=== PATIENT | male | born 1965 ===

== ENCOUNTER 2016-10-25 02:55 | Emergency (ER) | payer MEDICAID ==
--- NOTE | 2016-10-25 03:13 | C.PDOC ---
History Of Present Illness patient has been having chronic tinnitus and could not sleep tonight. Patient vey anxious, took 2 benadryl prior to arrival. Patient speaking in complete sentences,.tolerating his own secretions. No f/c/n/v Time Seen by Provider: 10/25/16 03:13 Chief Complaint (Nursing): ENT Problem History Per: Patient History/Exam Limitations: None Onset/Duration Of Symptoms: Other (10-12 months) Current Symptoms Are (Timing): Still Present Quality (Ear): Other (ringing) Symptoms Have Been: Episodic Severity: Moderate Pain Scale Rating Of: 4 Anticoagulant/Antiplatlet Use?: No Recent Aspirin Use: No Past Medical History Reviewed: Historical Data, Nursing Documentation, Vital Signs Vital Signs: Last Vital Signs Temp 97.5 F L 10/25/16 03:09 Pulse 103 H 10/25/16 03:09 Resp 26 H 10/25/16 03:09 BP 142/85 10/25/16 03:09 Pulse Ox 97 10/25/16 03:09 Family History: States: No Known Family Hx Review Of Systems Constitutional: Negative for: Fever, Chills Eyes: Negative for: Redness ENT: Positive for: Other (tinnitus). Negative for: Ear Pain, Nose Discharge, Nose Congestion, Throat Swelling Respiratory: Negative for: Shortness of Breath Gastrointestinal: Negative for: Nausea, Vomiting, Abdominal Pain Musculoskeletal: Negative for: Back Pain Skin: Negative for: Rash, Lesions, Jaundice, Bruising Neurological: Negative for: Weakness, Change in Speech Psych: Positive for: Anxiety Physical Exam - Physical Exam Appears: Non-toxic, No Acute Distress Skin: Warm, Dry Head: Atraumatic, Normacephalic Eye(s): bilateral: Normal Inspection, PERRL, EOMI Nose: No Discharge Oral Mucosa: Moist Throat: No Erythema, No Exudate Neck: Normal ROM, Supple Chest: Symmetrical Respiratory: No Rales, No Rhonchi, No Wheezing Neurological/Psych: Oriented x3, Normal Speech, Normal Cognition Gait: Steady ED Course And Treatment O2 Sat by Pulse Oximetry: 97 Pulse Ox Interpretation: Normal Disposition Counseled Patient/Family Regarding: Studies Performed, Diagnosis, Need For Followup, Rx Given - Disposition Referrals: Andrea De La Cruz MD [Staff Provider] - Samuel Aquino MD [Staff Provider] - Disposition: HOME/ ROUTINE Disposition Time: 03:13 Condition: FAIR Additional Instructions: Please also use claritin Prescriptions: Prednisone [Deltasone] 20 mg PO DAILY #5 tablet Meclizine [Meclizine*] 25 mg PO Q6 #30 tab Instructions: Tinnitus (ED), Labyrinthitis (ED) - Clinical Impression Clinical Impression: Tinnitus, Labyrinthitis
[2016-10-25 03:14] VITALS: O2SAT 97
[2016-10-25 05:16] VITALS: BP 104/61; PULSE 84; RESP 16; TEMP 98.1
== END 2016-10-25 05:16 | disposition home or self-care (01) ==
LOC: C.ER 02:55
DX: H93.19 Tinnitus, unspecified ear (principal); H83.09 Labyrinthitis, unspecified ear

== ENCOUNTER 2016-11-17 15:41 | Emergency (ER) | payer MEDICAID ==
[2016-11-17 15:56] VITALS: TEMP 97.8
[2016-11-17] MEDS ORDERED: Albuterol-Ipratrop 3 mg / 0.5 (3 ml) UD INH STA (16:22)
[2016-11-17] MEDS ORDERED: Albuterol-Ipratrop 3 mg / 0.5 (3 ml) UD ONE (16:25)
[2016-11-17] MEDS ORDERED: Sodium Chloride 0.9% 1,000 ML IV ONE (16:25)
[2016-11-17] MEDS ORDERED: Sodium Chloride 0.9% 1,000 ML ONE (16:32)
--- NOTE | 2016-11-17 16:46 | C.PDOC ---
History Of Present Illness A 51 y/o male with a Hx of anxiety, presents to the ER c/o nasal congestion and difficulty swallowing that occurred [employer]. Patient notes that his allergies became worse after swallowing soy milk noting that "he felt like his air way was closing". Pt reports his seasonal allergies has become worse lately. Pt notes taking Zyrtec with no relief. Pt denies rash, fever, chills, vomiting, nausea, or any other complaints. Time Seen by Provider: 11/17/16 15:58 Chief Complaint (Nursing): Allergic Reaction History Per: Patient History/Exam Limitations: no limitations Onset/Duration Of Symptoms: Hrs Current Symptoms Are (Timing): Still Present Context: Food Possible Cause: Seasonal Allergies Home/EMS Treatment: Other (Zyrtec) Severity: Mild Additional History Per: Patient Past Medical History Reviewed: Historical Data, Nursing Documentation, Vital Signs Vital Signs: Last Vital Signs Temp 97.8 F 11/17/16 15:54 Pulse 101 H 11/17/16 15:54 Resp 12 11/17/16 15:54 BP 168/82 H 11/17/16 15:54 Pulse Ox 96 11/17/16 17:24 - Medical History PMH: Asthma, Migraine Surgical History: Appendectomy Family History: States: Unknown Family Hx - Social History Hx Alcohol Use: No Hx Substance Use: No - Immunization History Hx Tetanus Toxoid Vaccination: No Hx Influenza Vaccination: No Hx Pneumococcal Vaccination: No Review Of Systems Except As Marked, All Systems Reviewed And Found Negative. Constitutional: Negative for: Fever, Chills ENT: Positive for: Nose Congestion, Throat Swelling (Difficulaty swallowing) Gastrointestinal: Negative for: Nausea, Vomiting Skin: Negative for: Rash Physical Exam - Physical Exam Appears: Non-toxic, No Acute Distress, Other (Appears anxious) Skin: Warm, Dry Head: Atraumatic, Normacephalic Eye(s): bilateral: Normal Inspection Ear(s): Bilateral: Normal Oral Mucosa: Moist Throat: No Exudate, Other (Widely patent) Cardiovascular: Rhythm Regular, No Murmur Respiratory: Normal Breath Sounds, No Accessory Muscle Use, No Rales, No Rhonchi , No Wheezing Neurological/Psych: Oriented x3, Normal Speech (No change in voice), Normal Cognition ED Course And Treatment O2 Sat by Pulse Oximetry: 96 (RA) Pulse Ox Interpretation: Normal Progress Note: prednisone, pepcid, duoneb, Xanax Reevaluation Time: 17:13 Reassessment Condition: Improved (much improved, calm, relaxing.) Medical Decision Making Medical Decision Making: Plans: -Abuterol -Xanx -Pepcid -PredniSONE -IV fluids -Reassess and disposition On reassessment, patient is resting comfortably, and is in no acute distress. Patient was instructed to follow up with physician/clinic in 1-2 days for further evaluation. 1715: c/c anxiety attack, seasonal allergies, allergic rxn to soy milk (but no rash/erythema anywhere) final re-eval, no rash, clear lungs, widely patent OP. Disposition Doctor Will See Patient In The: Office Counseled Patient/Family Regarding: Studies Performed, Diagnosis - Disposition Referrals: [facility] [Outside] [email or web address] [Outside] Disposition: HOME/ ROUTINE Disposition Time: 17:15 Condition: GOOD Additional Instructions: continue Zyrtec-D or Karma-D (the "D" is the Decongestant component of these meds) Continue the Medrol Dose Pack starting tomorrow/Fri, until completed. Prescriptions: Methylprednisolone [Medrol Dose Pack (21 tabs)] 4 mg PO DAILY #21 mg Instructions: Allergies (ED), General Allergic Reaction (ED) - Clinical Impression Clinical Impression: Throat discomfort - Scribe Statement The provider has reviewed the documentation as recorded by the Scribe Sahan [email or web address] All medical record entries made by the Scribe were at my direction and personally dictated by me. I have reviewed the chart and agree that the record accurately reflects my personal performance of the history, physical exam, medical decision making, and the department course for this patient. I have also personally directed, reviewed, and agree with the discharge instructions and disposition.
[2016-11-17 18:04] VITALS: BP 104/72; PULSE 76; RESP 10; O2SAT 97
== END 2016-11-17 18:03 | disposition home or self-care (01) ==
LOC: C.ER 15:41
DX: J39.2 Other diseases of pharynx (principal)
CPT/HCPCS: 94640; 99283; J7040

== ENCOUNTER 2016-12-19 13:06 | Emergency (ER) | payer MEDICAID ==
[2016-12-19 13:17] VITALS: BMI 26.2
[2016-12-19 14:09] LABS: BASO % 0.6 % (0.0-2.0); EOS # 0.4 K/uL (0.0-0.7); HEMATOCRIT 44.2 % (35.0-51.0); LYMPH # 2.3 K/uL (1.0-4.3); LYMPH % 37.5 % (20.0-40.0); MEAN CELL VOLUME 85.6 fL (80.0-94.0); MEAN CORPUSCULAR HEMOGLOBIN 28.5 pg (27.0-31.0); MEAN CORPUSCULAR HGB CONC 33.3 g/dL (33.0-37.0); MEAN PLATELET VOLUME 7.9 fL (7.2-11.7); MONO # 0.5 K/uL (0.0-0.8); MONO % 7.8 % (0.0-10.0); NRBC % 0.1 % (0.0-2.0); RED CELL DISTRIBUTION WIDTH 13.6 % (11.5-14.5); WHITE BLOOD COUNT 6.1 K/uL (4.8-10.8)
[2016-12-19 14:16] LABS: CHLORIDE 104 mmol/L (98-107); POTASSIUM 3.5 mmol/L (3.6-5.2); SODIUM 140 mmol/L (132-148)
[2016-12-19 14:18] LABS: ALB/GLOB RATIO 1.3 (1.0-2.1); ALKALINE PHOSPHATASE 42 U/L (38-126); AST/SGOT 41 U/L (17-59); BILIRUBIN,TOTAL 0.8 mg/dL (0.2-1.3); CARBON DIOXIDE 27 mmol/L (22-30); GFR AFRICAN-AMERICAN > 60; TOTAL PROTEIN 7.5 g/dL (6.3-8.3)
[2016-12-19 14:19] LABS: ALT/SGPT 34 U/L (21-72); BLOOD UREA NITROGEN 15 mg/dL (9-20); CALCIUM 9.4 mg/dl (8.6-10.4); GLUCOSE,RANDOM 98 mg/dL (75-110)
[2016-12-19] MEDS ORDERED: Apap-Butalbital-Caffeine 325-50-40mg Tab PO STA (14:53)
[2016-12-19] MEDS ORDERED: Sodium Chloride 0.9% 1,000 ML IV ONE (14:54)
[2016-12-19] MEDS ORDERED: Apap-Butalbital-Caffeine 325-50-40mg Tab ONE (15:08)
[2016-12-19] MEDS ORDERED: Sodium Chloride 0.9% 1,000 ML ONE (15:08)
--- NOTE | 2016-12-19 15:47 | CT ---
PROCEDURE: CT HEAD WITHOUT CONTRAST. HISTORY: Headaches COMPARISON: None available. TECHNIQUE: Axial computed tomography images were obtained through the head/brain without intravenous contrast. Radiation dose: Total exam DLP = 1012.35 mGy-cm. This CT exam was performed using one or more of the following dose reduction techniques: Automated exposure control, adjustment of the mA and/or kV according to patient size, and/or use of iterative reconstruction technique. FINDINGS: HEMORRHAGE: No intracranial hemorrhage. BRAIN: No mass effect or edema. The rolle-white matter differentiation appears intact. Please note that MRI with diffusion imaging is more sensitive in the detection of acute ischemic event. VENTRICLES: Unremarkable. CALVARIUM: Unremarkable. PARANASAL SINUSES: Unremarkable as visualized. No significant inflammatory changes. MASTOID AIR CELLS: Unremarkable as visualized. No inflammatory changes. OTHER FINDINGS: None. IMPRESSION: No acute intracranial pathology identified.
[2016-12-19 15:51] VITALS: O2SAT 99
--- NOTE | 2016-12-19 16:11 | RAD ---
PROCEDURE: CHEST RADIOGRAPH, 1 VIEW HISTORY: Chest discomfort? COMPARISON: None available. FINDINGS: LUNGS: The lungs are well inflated and clear. PLEURA: No pneumothorax or pleural fluid seen. CARDIOVASCULAR: Normal. OSSEOUS STRUCTURES: No significant abnormalities. VISUALIZED UPPER ABDOMEN: Normal. OTHER FINDINGS: None. IMPRESSION: No active pulmonary disease.
--- NOTE | 2016-12-19 17:43 | C.PDOC ---
Time Seen by Provider: 12/19/16 14:21 Chief Complaint (Nursing): Headache History Per: Patient, Family Onset/Duration Of Symptoms: Days (months), Intermittent Episodes Current Symptoms Are (Timing): Still Present Severity: Moderate Quality: Pressure Additional History Per: Prior Records Past Medical History Reviewed: Historical Data, Nursing Documentation, Vital Signs Vital Signs: Last Vital Signs Temp 98.1 F 12/19/16 15:50 Pulse 68 12/19/16 15:50 Resp 18 12/19/16 15:50 BP 126/79 12/19/16 15:50 Pulse Ox 99 12/19/16 15:50 - Medical History PMH: Asthma, Migraine (?) Surgical History: Appendectomy Family History: States: Unknown Family Hx - Social History Hx Tobacco Use: No Hx Alcohol Use: No Hx Substance Use: No - Immunization History Hx Tetanus Toxoid Vaccination: No Hx Influenza Vaccination: No Hx Pneumococcal Vaccination: No Review Of Systems Except As Marked, All Systems Reviewed And Found Negative. Constitutional: Negative for: Fever, Weakness Cardiovascular: Positive for: Chest Pain Respiratory: Negative for: Shortness of Breath, Hemoptysis Gastrointestinal: Negative for: Nausea, Vomiting, Abdominal Pain, Diarrhea Musculoskeletal: Negative for: Neck Pain Neurological: Positive for: Headache. Negative for: Weakness, Numbness, Seizures, Altered Mental Status Physical Exam - Physical Exam Appears: Non-toxic, No Acute Distress Skin: Normal Color, Warm, Dry, No Rash Head: Atraumatic, Normacephalic Eye(s): bilateral: PERRL, EOMI Neck: Normal ROM, Supple Cardiovascular: Rhythm Regular Respiratory: Normal Breath Sounds, No Accessory Muscle Use Gastrointestinal/Abdominal: Soft, No Tenderness Back: No CVA Tenderness Extremity: Normal ROM, No Pedal Edema, No Calf Tenderness Neurological/Psych: Oriented x3, Normal Speech, Normal Cognition, Normal Motor, Normal Sensation ED Course And Treatment - Laboratory Results Result Diagrams: 12/19/16 14:04 12/19/16 14:04 Lab Interpretation: No Acute Changes ECG: Interpreted By Me, Viewed By Me ECG Rhythm: Sinus Rhythm ECG Interpretation: No Acute Changes Rate From EC O2 Sat by Pulse Oximetry: 99 Pulse Ox Interpretation: Normal - Radiology CXR: Viewed By Me, Read By Radiologist CXR Interpretation: Yes: No Acute Disease - CT Scan/US CT head Other Rad Studies (CT/US): Read By Radiologist, Radiology Report Reviewed CT/US Interpretation: IMPRESSION: No acute intracranial pathology identified. Progress Note: Pt states he has a cardiology appointment tomorrow and MRI of brain on Monday. Reassessment Condition: Improved Disposition Counseled Patient/Family Regarding: Studies Performed, Diagnosis, Need For Followup - Disposition Disposition: HOME/ ROUTINE Disposition Time: 17:45 Condition: IMPROVED Additional Instructions: Follow up with your doctor for further evaluation and treatment. Return to the ER if you develop weakness, numbness, shortness of breath, vomiting, worsening of symptoms or if you have any other concerns. Instructions: General Headache (ED) - Clinical Impression Clinical Impression: Chronic headaches
[2016-12-19 18:08] VITALS: BP 112/74; PULSE 74; RESP 20; TEMP 97.8
--- NOTE | 2016-12-20 12:02 | CARD ---
APPROVED REPORT EKG Measurement Heart [id number] OR [id number] <Conclusion> Normal sinus rhythm Normal ECG
== END 2016-12-19 18:12 | disposition home or self-care (01) ==
LOC: C.ER 13:06
DX: R51 Headache (principal)
CPT/HCPCS: 70450; 71010; 80053; 84484; 85025; 93005; 96360; 99285; J7040

== ENCOUNTER 2017-10-11 05:54 | Emergency (ER) | payer MEDICAID, MEDICARE ==
[2017-10-11 05:54] VITALS: BMI 26.2
--- NOTE | 2017-10-11 06:19 | C.PDOC ---
History Of Present Illness Pt developed r inguinal pain a, radiating into his right testicle after doing leg presses 2 days ago. Hurts to move, pain worsens with flexion active or passive. No incontinence of either urine or feces Time Seen by Provider: 10/11/17 06:19 Chief Complaint (Nursing): Hip Pain History Per: Patient History/Exam Limitations: no limitations Onset/Duration Of Symptoms: Days (2) Current Symptoms Are (Timing): Still Present Severity: Severe Pain Scale Rating Of: 6 Recent travel outside of the [place]: No Additional History Per: Family - Hip Currently Unable To: Bend Or Move Past Medical History Reviewed: Historical Data, Nursing Documentation, Vital Signs Vital Signs: Last Vital Signs Temp 97.6 F 10/11/17 06:02 Pulse 68 10/11/17 06:02 Resp 20 10/11/17 06:02 BP 149/81 10/11/17 06:02 Pulse Ox 99 10/11/17 06:19 - Medical History PMH: Asthma, Migraine (?) Surgical History: Appendectomy Family History: States: No Known Family Hx - Social History Hx Tobacco Use: No Hx Alcohol Use: No Hx Substance Use: No - Immunization History Hx Tetanus Toxoid Vaccination: No Hx Influenza Vaccination: No Hx Pneumococcal Vaccination: No Review Of Systems Constitutional: Negative for: Fever, Chills Genitourinary: Positive for: Other (r testicular discomfort). Negative for: Dysuria Musculoskeletal: Positive for: Back Pain, Other (r hip pain) Neurological: Negative for: Weakness Psych: Negative for: Anxiety Physical Exam - Physical Exam Appears: Non-toxic Gastrointestinal/Abdominal: Soft, Tenderness (r inguinal area), No Distention, No Guarding, No Hernia Back: No CVA Tenderness, Straight Leg Raising (pain 30 degrees) Male Genital: Testicular Tenderness (right), Inguinal Tenderness, No Inguinal Swelling, No Scrotal Swelling Extremity: No Pedal Edema Extremity: Right: Limited ROM To Joint (due to pain), Bilateral: Normal Color And Temperature Pulses: Left Dorsalis Pedis: Normal, Right Dorsalis Pedis: Normal Neurological/Psych: Oriented x3, Normal Speech, Normal Cognition Gait: Steady ED Course And Treatment O2 Sat by Pulse Oximetry: 99 Disposition Counseled Patient/Family Regarding: Studies Performed, Diagnosis - Disposition Disposition Time: 06:19 Condition: FAIR Forms: [employer] (Bengali) - Clinical Impression Clinical Impression: Inguinal strain Physician Patient Turnover Patient Signed Over To: Keren Arias Handoff Comments: pending US, re-eval and disposition
[2017-10-11] MEDS ORDERED: Oxycodone/Acetaminophen 5/325 mg Tab ONE (06:43)
[2017-10-11] MEDS: Oxycodone/Acetaminophen 5/325 mg Tab PO STA (06:45)
--- NOTE | 2017-10-11 08:28 | US ---
HISTORY: r testicular pain after heavy lifting TECHNIQUE: Realtime sonography through the scrotum with color and doppler flow. COMPARISON: None Available. FINDINGS: RIGHT TESTICLE: Measures 3.6 x 2.1 x 3.0 cm. Normal echotexture and flow. RIGHT EPIDIDYMIS: Epididymal head measures 1.5 x 0.8 x 1.3 cm. Grossly unremarkable appearance with normal flow. LEFT TESTICLE: Measures 4.2 x 2.0 x 2.8 cm. Normal echotexture and flow. LEFT EPIDIDYMIS: Epididymal head measures 1.1 x 0.8 x 1.1 cm. Grossly unremarkable appearance with normal flow. HYDROCELE: None. VARICOCELE: None. OTHER FINDINGS: None. IMPRESSION: Unremarkable testicular ultrasound. No evidence of testicular torsion.
[2017-10-11] MEDS ORDERED: Lidocaine 5% Patch TD ONE (08:44)
[2017-10-11] MEDS: Lidocaine 5% Patch TD STA (08:45)
[2017-10-11 08:50] VITALS: BP 121/79; PULSE 61; RESP 18; TEMP 97.5; O2SAT 98
== END 2017-10-11 08:50 | disposition home or self-care (01) ==
LOC: C.ER 05:54
DX: S39.011A Strain of muscle, fascia and tendon of abdomen, initial encounter (principal); X50.0XXA Overexertion from strenuous movement or load, initial encounter; Y92.39 Other specified sports and athletic area as the place of occurrence of the external cause